=== PATIENT | male | born 1935 | race Two or more races ===

== ENCOUNTER 2019-01-28 10:20 | Inpatient (IN) | payer MEDICARE, BC ==
--- NOTE | 2019-01-28 10:31 | ED ---
HPI Chest Pain - HPI Summary HPI Summary: 83 year old M brought in by ambulance, [facility] his primary customer service representative teacher, Dr. Thurman, at [facility] in [place] accompanied by with a chief complaint of chest pressure that started last night, lasted for a few hours, and has since resolved. The patient complains of no symptoms in the ED. Symptoms aggravated by nothing. Symptoms alleviated by nothing. EMS reports irregular tachycardia en route. Patient denies shortness of breath, dizziness. Patient had a pacemaker placed in 2001. - History of Current Complaint Time Seen by Provider: 01/28/19 10:23 Hx Obtained From: Patient, EMS Onset/Duration: Started Days Ago - last night, Resolved Timing: Constant Current Severity: None Aggravating Factor(s): Nothing Alleviating Factor(s): Nothing Associated Signs and Symptoms: Positive: Negative - shortness of breath, dizziness, Other: - irregular tachycardia - Allergy/Home Medications Allergies/Adverse Reactions: Allergies Allergy/AdvReac Type Severity Reaction Status Date / Time No Known Allergies Allergy Verified 01/28/19 10:37 Home Medications: Home Medications Flaxseed Oil 1,400 mg PO DAILY 01/28/19 [History Confirmed 01/28/19] PMH/Surg Hx/FS Hx/Imm Hx Previously Healthy: No Endocrine/Hematology History: Reports: Hx Thyroid Disease - hypo Cardiovascular History: Reports: Hx Hypertension, Hx Pacemaker/ICD Sensory History: Reports: Hx Contacts or Glasses Opthamlomology History: Reports: Hx Contacts or Glasses - Surgical History Surgery Procedure, Year, and Place: PACEMAKER in 2001, b/l rotator cuff - Family History Known Family History: Positive: Hypertension - Social History Alcohol Use: Daily Alcohol Amount: 1 Hx Substance Use: No Substance Use Type: Reports: None Hx Tobacco Use: No Smoking Status (MU): Never Smoked Tobacco Review of Systems Positive: Other - chest pressure that is resolved, irregular tachycardia Negative: Shortness Of Breath Neurological: Negative - dizziness All Other Systems Reviewed And Are Negative: Yes Physical Exam - Summary Physical Exam Summary: VITAL SIGNS: Reviewed. GENERAL: Patient is a well-developed and nourished MALE who is lying comfortable in the stretcher. Patient is not in any acute respiratory distress. HEAD AND FACE: No signs of trauma. No ecchymosis, hematomas or skull depressions. No sinus tenderness. EYES: PERRLA, EOMI x 2, No injected conjunctiva, no nystagmus. EARS: Hearing grossly intact. Ear canals and tympanic membranes are within normal limits. MOUTH: Oropharynx within normal limits. NECK: Supple, trachea is midline, no adenopathy, no JVD, no carotid bruit, no c- spine tenderness, neck with full ROM. CHEST: Symmetric, no tenderness at palpation LUNGS: Clear to auscultation bilaterally. No wheezing or crackles. CVS: Tachycardia and regular rhythm, S1 and S2 present, no murmurs or gallops appreciated. ABDOMEN: Soft, non-tender. No signs of distention. No rebound no guarding, and no masses palpated. Bowel sounds are normal. EXTREMITIES: FROM in all major joints, no edema, no cyanosis or clubbing. NEURO: Alert and oriented x 3. No acute neurological deficits. Speech is normal and follows commands. SKIN: Dry and warm. Triage Information Reviewed: Yes Vital Signs Reviewed: Yes Diagnostics - Laboratory Result Diagrams: 01/28/19 10:51 01/28/19 10:51 Lab Statement: Any lab studies that have been ordered have been reviewed, and results considered in the medical decision making process. - Radiology CXR Radiology Interpretation Completed By: Radiologist Summary of Radiographic Findings: 1. Pulmonary vascular congestion with mild alveolar and interstitial edema. ED physician has reviewed this report. - EKG 1030 Cardiac Rate: Tachycardia - 135 BPM EKG Rhythm: Atrial Flutter EKG Comparison: No Significant Change - 11/16/2007 Summary of EKG Findings: Tachycardia at 135 BPM, atrial flutter, LVH, and ST depressions in I, II, B4-B6. This EKS is similar to previous EKG on 11/16/2007 Chest Pain Course/Dx - Course Assessment/Plan: 83 year old M brought in by ambulance, [facility] his primary customer service representative teacher, Dr. Thurman, at [facility] in [place] accompanied by with a chief complaint of chest pressure that started last night, lasted for a few hours, and has since resolved. The patient complains of no symptoms in the ED. Symptoms aggravated by nothing. Symptoms alleviated by nothing. EMS reports irregular tachycardia en route. Patient denies shortness of breath, dizziness. Patient had a pacemaker placed in 2001. Past medical history significant for. 1- hypothyroidism. 2- hypertension. 3- BPH status post TURP. 4- Atrial fibrillation on Eliquis. 5- ICD implant. 6- Cholecystectomy. EKG shows an atrial flutter 139 bpm. I discussed the case with Dr. Marshall from cardiology and he reported that at this time, we are unable to cardiovert him because the patient ate this morning. Therefore, he recommends to give a dose of amiodarone at 150 mg in 10-15 minutes. If the patient doesnt chemically convert to sinus rhythm, then admit the patient to the hospitalist services and Dr. Marshall will try to cardiovert him early this evening. Patient was given 2 doses of Amiodarone and has not converted to normal sinus rhythm. The heart rate is still in the 115 - 120 bpm range. Discussed the case again with Dr. Marshall and he recommends for the patient to be placed on amiodarone drip. I discussed my physical exam and test results with Dr. Wilson from the hospitalist services and she agrees to admit patient to her services. Patient is hemodynamically stable alert and oriented x 3. - Diagnoses Provider Diagnoses: Atrial flutter with rapid ventricular response - Provider Notifications Time Discussed With Above Provider: 10:44 Instructed by Provider To: Other - Dr. Thurman, customer service representative teacher from [employer], states that patient ate this morning. Spoke with Dr. Marshall, cardiology, at 10: 48, who states that since patient ate between 08:00 and 09:00 this morning, we have to wait [address] Marshall recommends giving patient amiodarone 150 mg over 10-15 minutes and see if patient chemically converts to sinus rhythm. Spoke with Dr. Wilson, hospitalist, at 1141, who agrees to admit the patient. Spoke with Dr. Marshall, cardiology, at 1144, who agrees that patient should be placed on an amiodarone drip. - Critical Care Time Critical Care Time: 30-74 min Discharge - Sign-Out/Discharge Documenting (check all that apply): Patient Departure - Admit Patient Received Moderate/Deep Sedation with Procedure: No - Discharge Plan Condition: Stable Disposition: ADMITTED TO [facility] - Billing Disposition and Condition Condition: STABLE Disposition: Admitted to [facility] - Attestation Statements Document Initiated by Scribe: Yes Documenting Scribe: Sujey Lopez Provider For Whom Scribe is Documenting (Include Credential): Faustino Robertson MD Scribe Attestation: I, Sujey Lopez, scribed for Faustino Robertson MD on 01/28/19 at 1426. Scribe Documentation Reviewed: Yes Provider Attestation: The documentation as recorded by the scribe, Sujey Lopez accurately reflects the service I personally performed and the decisions made by me, Faustino Robertson MD Status of Scribe Document: Viewed
[2019-01-28] MEDS ORDERED: Amiodarone 150 MG IVPREMIX* 150 MG/100 ML BAG IV ONE ×2 (10:51→11:38)
[2019-01-28 10:59] LABS: Hematocrit 52 % (42-52); Hemoglobin 17.3 g/dL (14.0-18.0); Mean Corpuscular HGB Conc 33 g/dL (31-36); Mean Corpuscular Hemoglobin 32 pg (27-31); Mean Corpuscular Volume 97 fL (80-94); Mean Platelet Volume 10.8 fL (7.4-10.4); Platelet Count 110 10^3/uL (150-450); Red Blood Count 5.39 10^6 /uL (4.18-5.48); Red Cell Distribution Width 14 % (10-15)
[2019-01-28 11:09] LABS: Activated Partial Thrombo Time 39.7 seconds (26.0-38.0); INR 1.38 (0.82-1.09)
[2019-01-28 11:14] LABS: Anion Gap 5 mmol/L (2-11); BUN/Creatinine Ratio 15.3 (8-20); Blood Urea Nitrogen 17 mg/dL (6-24); CO2 Carbon Dioxide 26 mmol/L (22-32); Chloride 110 mmol/L (101-111); Glucose 119 mg/dL (70-100); Potassium 3.6 mmol/L (3.5-5.0); Sodium 141 mmol/L (135-145)
[2019-01-28 11:15] LABS: ALT 17 U/L (7-52); AST 21 U/L (13-39); Albumin 3.7 g/dL (3.2-5.2); Albumin/Globulin Ratio 1.3 (1-3); Alkaline Phosphatase 59 U/L (34-104); Calcium 8.9 mg/dL (8.6-10.3); Creatine Kinase 65 U/L (10-223); EGFR African American 76.4 (>60); EGFR Non-African American 63.1 (>60); Globulin 2.8 g/dL (2-4); Magnesium 1.9 mg/dL (1.9-2.7); Total Protein 6.5 g/dL (6.4-8.9)
[2019-01-28 11:19] LABS: CKMB ng/mL 5.5 ng/mL (0.6-6.3)
[2019-01-28 11:24] LABS: Troponin I 0.08 ng/mL (<0.04)
[2019-01-28 11:42] LABS: ABS Eosinophils 0.1 10^3/ul (0-0.6); ABS Lymphocytes 1.1 10^3/ul (1.0-4.8); ABS Monocytes 1.1 10^3/ul (0-0.8); ABS Neutrophils 5.7 10^3/ul (1.5-7.7); Large Platelets Present; Lymphocyte % 13.9 %
[2019-01-28] MEDS ORDERED: Amiodarone 360 MG IVPREMIX* 360 MG/200 ML BAG IV ONE (11:45)
[2019-01-28 12:04] LABS: TSH (Thyroid Stimulating Horm) 1.42 mcIU/mL (0.34-5.60)
[2019-01-28] MEDS ORDERED: Magnesium Sulfate 1 GM IV* 1 GM/100 ML BAG IV ONE (12:14)
[2019-01-28] MEDS: KCL 20 MEQ/100 ML IVPREMIX* 20 MEQ/100 ML BAG IV SCH ×2 (13:28→18:28)
--- NOTE | 2019-01-28 13:42 | HP ---
CC: Dr. Dinero; Dr. Thurman, [facility] * HOSPITAL MEDICINE HISTORY AND PHYSICAL: DATE OF ADMISSION: 01/28/19 PRIMARY CARE PHYSICIAN: Dr. Dinero. [employer] ATTENDANT: Dr. Thurman at [facility] in [place]. ATTENDING PHYSICIAN: Dr. Gladys Wilson (dictation provided by Julisa Felton NP). CHIEF COMPLAINT: Chest tightness, dizziness, palpitations. HISTORY OF PRESENT ILLNESS: Mr. Reynolds is an 83-year-old male with a past medical history of AFib/SVT with pacemaker/defibrillator placed in 2001, as well as hypothyroidism, who presents to the hospital today with concern for chest tightness, dizziness, and palpitations. Mr. Reynolds states that he first began feeling unwell about 2 days ago. He noticed some chest tightness, but had no other symptoms. Yesterday evening, he began to feel unwell. At one point, he got up and felt very dizzy and almost fell down. His took his blood pressure and noted that his blood pressure was normal, but that his heart rate was elevated to approximately 130. She took it several times during the evening and it remained at 130. The patient decided to go to bed at night and to call his manager data warehousing in the morning. This morning, Mr. Reynolds continued to have a heart rate in the 130s. He also describes at this point some sensation of palpitations and a sensation of shortness of breath. His spoke to Dr. Thurman over the phone and he recommended that he come immediately to the hospital via ambulance. Mr. Reynolds states that he is feeling well just lying in the bed now. He denies any other symptoms including nausea, vomiting, diarrhea , abdominal pain. He has been tolerating oral intake well. Mr. Reynolds was found to be in a rapid SVT on arrival. His heart rate was 135. He has ST depressions in V3 through V5. Rhythm is likely AFib. The patient was given amiodarone boluses x2. Case was discussed with Dr. Carlo Marshall from Cardiology and plans were made for the patient to have an amiodarone drip, though it has not been initiated yet. I will note that the patient does have a mildly low potassium at 3.6 and a magnesium of 1.9. His troponin is 0.08. PAST MEDICAL HISTORY: 1. History of SVT or AFib with pacemaker/defibrillator placement in 2001. The patient reports 2 episodes of defibrillator activity, none noted during the current episode. 2. Hypothyroidism. MEDICATIONS OUTPATIENT: 1. Flaxseed oil 1400 mg p.o. daily. 2. Eliquis 5 mg p.o. b.i.d. 3. Tamsulosin 0.4 mg p.o. b.i.d. 4. Levothyroxine 150 mcg p.o. daily. 5. Diltiazem 180 mg p.o. daily. ALLERGIES: No known drug allergies. FAMILY HISTORY: The patient reports his mother at age 94 related to stroke. She also had colon cancer. Dad in his 80s, but he is unsure of what cause. SOCIAL HISTORY: The patient denies tobacco or drug use. He drinks one-half glass of an alcoholic beverage per night. REVIEW OF SYSTEMS: A 14-point review of systems was completed with Mr. Reynolds and all those not mentioned above were negative. PHYSICAL EXAMINATION GENERAL: Mr. Reynolds is lying in the bed with his at the bedside. He is in no acute distress. VITAL SIGNS: Temperature 98.9, pulse rate 127 during my examination, respiratory rate 22, O2 saturation 98% on room air, blood pressure 163/103. LUNGS: Clear to auscultation bilaterally with no accessory muscle use and good aeration. HEART: S1, S2. Irregular and rapid. ABDOMEN: Soft, nontender with bowel sounds positive x4. EXTREMITIES: No cyanosis or edema. NEURO: He is alert. He is oriented x3. He moves all extremities equally. There is no facial asymmetry or focal weakness. Extraocular movements are intact. SKIN: Intact. DIAGNOSTIC STUDIES/LAB DATA: Sodium 141, potassium 3.6, chloride 110, serum bicarbonate 26, BUN 17, creatinine 1.11, glucose 119. Troponin 0.08. BNP 810. TSH is 1.42. WBC 8.0, hemoglobin 17.3, hematocrit 52, platelet count 110. Chest x-ray shows some pulmonary vascular congestion. ASSESSMENT AND PLAN: Mr. Reynolds is an 83-year-old male with a past medical history of supraventricular tachycardia and/or atrial fibrillation with pacemaker/defibrillator, who presents to the hospital with concern for not feeling well with symptoms of chest tightness, shortness of breath, dizziness, and palpitations. In the emergency room, he has been found to have a rapid heart rate at 135, likely with supraventricular tachycardia and possible atrial fibrillation. Our plans are for inpatient admission as I expect his length of stay to be greater than 2 days for the followin. Rapid heart rate. Appears to be atrial fibrillation, but regardless he has a rapid supraventricular tachycardia. The patient has been given 2 boluses of amiodarone with limited effect as his heart rate is 127. Dr. Marshall has recommended the initiation of an amiodarone drip, which has not been started yet. The patient is already on Eliquis. We will repeat electrolytes with potassium and magnesium now and recheck in the a.m. 2. Hypothyroidism. Continue levothyroxine. 3. Benign prostatic hypertrophy. Continue Flomax. 4. Code status is full code. 5. Disposition: To ICU for amiodarone drip. TIME SPENT: Approximately 60 minutes was spent on the admission of this patient , more than half the time spent with the patient at the bedside reviewing the events leading up to this hospitalization, performing the physical examination, and reviewing my plan of care. JULISA FELTON NP [id number]/CPS #: [id number] YAMILETH
[2019-01-28 14:46] LABS: Troponin I 0.09 ng/mL (<0.04)
[2019-01-28 14:50] LABS: Urine Appearance Clear; Urine Bilirubin Negative (Negative); Urine Blood Negative (Negative); Urine Color Yellow; Urine Glucose Negative (Negative); Urine Ketones Negative (Negative); Urine Nitrite Negative (Negative); Urine Protein Negative (Negative); Urine Specific Gravity 1.025 (1.010-1.030); Urine Urobilinogen Negative (Negative)
[2019-01-28] MEDS ORDERED: fentaNYL* 50 MCG/ML 2 ML VIAL (100 MCG VIAL) ONE (16:07)
[2019-01-28] MEDS ORDERED: Midazolam* 1 MG/ML 10 ML VIAL (10 MG) ONE (16:07)
[2019-01-28] MEDS ORDERED: Flumazenil* 0.1 MG/ML 5 ML MDV ONE (16:10)
[2019-01-28] MEDS ORDERED: Naloxone* 0.4 MG/ML 1 ML VIAL ONE (16:10)
[2019-01-28] MEDS ORDERED: Adenosine* 3 MG/ML VIAL ONE ×2 (16:11→17:24)
--- NOTE | 2019-01-28 17:47 | PROCNOTE ---
Cardiology Procedure Note 01/28/2019 External electrical cardioversion Risks, benefits and alternatives discussed and patient wished to proceed Patient with symptomatic rapid atrial flutter 2:1 Adenosine 6 mg IV no response Adenosine 12 mg IV slowed atrial flutter transiently Patient maintained rapid atrial flutter despite IV amiodarone bolus and infusion Patient has been taking eliquis 5 mg po bid for at least 1 month so FALGUNI not indicated 5 mg IV versed, 50 mcg IV fentanyl used for conscious sedation Patient cardioverted from rapid atrial flutter to sinus/paced rhythm with 75J external electrical sync x 1
--- NOTE | 2019-01-28 18:01 | CONSULT ---
Subjective Date of Service: 01/28/19 Interval History: Admission Date: 01/28/19 Consult date 01/28/2019 Provider: Hospitalist service PCP Dr. Dinero Subway Guard: Dr. Thurman CHIEF COMPLAINT: Chest tightness, dizziness, palpitations Reason for consult: Atrial flutter HISTORY OF PRESENT ILLNESS: Mr. Reynolds is an 83-year-old man with a history as below who was admitted for several days of chest discomfort, dizziness and palpitations. He was seen in the ER and found with rapid atrial flutter that was unable to be rate controlled or converted with IV amiodarone bolus and infusion. It was ultimately decided that an electrical cardioversion would be most appropriate and this was pursued. His K of 3.6 and Mg of 1.9 were replaced. he had a mildly detectable troponin stable on repeat secondary to underlying structural heart disease and arrhythmia and not consistent with ACS. PAST MEDICAL HISTORY: 1. Mild NICM. Patient tells me he had normal coronary angiogram 4-5 years ago. Had normal perfusion with LVEF 41% by stress testing 12/2017 2. VT s/p PM/ICD 2011 - 2 ICD discharged uncertain if appropriate 3. Paroxysmal atrial fibrillation on eliquis fdc 4. Hypothyroidism. ALLERGIES: No known drug allergies. FAMILY HISTORY: The patient reports his mother at age 94 related to stroke. She also had colon cancer. Dad in his 80s, but he is unsure of what cause. SOCIAL HISTORY: The patient denies tobacco or drug use. He drinks one-half glass of an alcoholic beverage per night. his and granddaughter are present Medications Active Medications: Apixaban (Eliquis*) 5 mg PO BID [facility] Diltiazem HCl (Cardizem Cd Cap*) 120 mg PO DAILY [facility]; Protocol Levothyroxine Sodium (Synthroid Tab*) 150 mcg PO DAILY@0600 [facility] Tamsulosin HCl (Flomax Cap*) 0.4 mg PO BID [facility] Home Medications: Apixaban* [Eliquis*] 5 mg PO BID 04/01/16 [History Confirmed 01/28/19] Diltiazem TAB* [Cardizem TAB*] 180 mg PO DAILY 04/01/16 [History Confirmed 01/28] Levothyroxine TAB* [Synthroid TAB*] 150 mcg PO DAILY 04/01/16 [History Confirmed 01/28/19] Tamsulosin HCl [Flomax] 0.4 mg PO BID 04/01/16 [History Confirmed 01/28/19] Flaxseed Oil 1,400 mg PO DAILY 01/28/19 [History Confirmed 01/28/19] Review of Systems - Measurements Intake and Output: Intake and Output Last 24 Hours 01/26/19 01/27/19 01/28/19 01/29/19 06:59 06:59 06:59 06:59 Intake Total 300 Balance 300 Weight 180 lb Intake: IV Fluids 300 - Review of Systems Constitutional Symptoms: Positive: Weakness, Fatigue Negative: Weight Gain, Weight Loss, Fever, Night Sweats, Unexplained Falls Dermatology: Negative: Rash, Skin Lesions HEENT: Negative: Change in Hearing, Vertigo Eyes: Negative: Change in Vision, Double Vision Thyroid: Positive: Palpitations Negative: Weight Loss, Weight Gain Pulmonary: Negative: Cough, Sputum, Hemoptysis, Wheezing, Respiratory Distress, COPD, Home Oxygen Cardiology: Positive: Chest Pain, Shortness of Breath, Palpitations Negative: Swelling of Ankles, Peripheral Vascular Dis, Edema, Syncope, Claudication, Paroxysmal Nocturnal Dyspnea, Orthopnea Gastroenterology: Negative: Abdominal Pain, Nausea, Vomiting, Anorexia, Blood in Stools, Haematemesis, Melena Genital - Urinary: Negative: Dysuria, Hematuria, Nocturia Musculoskeletal: Negative: Joint Pain, Joint Stiffness Endocrinology: Negative: Polydipsia, Polyuria Hematologic/Lymphatic: Positive: Use of Anticoagulant Negative: Hx Leukemia, Hx Lymphoma Neurology: Negative: Change in Speech, Change in Sphincter Function, Change in Walking, Hx of Stroke\TIA, Hx Seizures Psychiatry: Negative: Unusual Anxiety, Suicidal Ideation Allergic/Immunologic: Negative: Hx HIV, Immunocompromise Review of Systems Statement: All other review of systems negative, unless stated above. Objective Vital Signs: Temp Pulse Resp BP Pulse Ox 98.2 F 127 22 145/98 94 01/28/19 16:00 01/28/19 15:00 01/28/19 15:00 01/28/19 15:00 01/28/19 15:00 Oxygen Devices in Use Now: None Appearance: nad, pleasant Ears/Nose/Mouth/Throat: Clear Oropharnyx, Mucous Membranes Moist Neck: NL Appearance and Movements; NL JVP, Trachea Midline Respiratory: Symmetrical Chest Expansion and Respiratory Effort, Clear to Auscultation Cardiovascular: - - tachycardic, regular, no significant murmur, pm/icd intact left upper chest Abdominal: NL Sounds; No Tenderness; No Distention Extremities: No Edema Skin: No Rash or Ulcers Neurological: Alert and Oriented x 3 Laboratory Results: 01/28/19 10:51 01/28/19 10:51 INR (Anticoag Therapy) 1.38 (0.82-1.09) H 01/28/19 10:51 APTT 39.7 seconds (26.0-38.0) H 01/28/19 10:51 Total Bilirubin 0.90 mg/dL (0.2-1.0) 01/28/19 10:51 AST 21 U/L (13-39) 01/28/19 10:51 ALT 17 U/L (7-52) 01/28/19 10:51 Alkaline Phosphatase 59 U/L (34-104) 01/28/19 10:51 CK-MB (CK-2) 5.5 ng/mL (0.6-6.3) 01/28/19 10:51 B-Natriuretic Peptide 810 pg/mL (<=100) H 01/28/19 10:51 Total Protein 6.5 g/dL (6.4-8.9) 01/28/19 10:51 Albumin 3.7 g/dL (3.2-5.2) 01/28/19 10:51 Globulin 2.8 g/dL (2-4) 01/28/19 10:51 Albumin/Globulin Ratio 1.3 (1-3) 01/28/19 10:51 TSH 1.42 mcIU/mL (0.34-5.60) 01/28/19 10:51 01/28/19 01/28/19 10:51 14:03 Troponin I 0.08 H* 0.09 H* mg 1.9 Diagnostic Imaging: Exam Date: 01/28/19 IMPRESSION: #. Pulmonary vascular congestion with mild alveolar and interstitial edema. EKG Data: ekg 11/2007: NSR, LBBB ekg today: 2:1 atrial flutter 135 bpm, ivcd, rate related st changes Assessment/Plan Patient with a history as above admitted with 2:1 atrial flutter unable now s/p external electrical cardioversion. See separate procedure report for details. - Would monitor overnight - Continue current amiodarone gtt then d/c - Continue [employer] diltiazem and eliquis - CXR notes pulmonary congestion. Likely secondary to arrhythmia. Will monitor overnight check echo and EKG tomorrow morning. Pending results of these tentative plan for discharge tomorrow on same medications as was admitted with. Patient has an appointment with his civil engineering designer, Dr. Thurman on 2018 previously scheduled for further evaluation and management
[2019-01-28] MEDS: Tamsulosin CAP* 0.4 MG PO SCH (21:04)
[2019-01-28] MEDS: Apixaban* 5 MG TAB PO SCH (21:04)
[2019-01-28] MEDS ORDERED: Furosemide IV* 10 MG/ML 2 ML VIAL (20 MG) IV ONE (21:38)
[2019-01-28] MEDS ORDERED: Benzonatate CAP* 100 MG PO PRN (23:47)
[2019-01-29 05:31] LABS: BUN/Creatinine Ratio 14.7 (8-20); Calcium 8.6 mg/dL (8.6-10.3); EGFR Non-African American 64.4 (>60); Potassium 3.9 mmol/L (3.5-5.0)
[2019-01-29] MEDS ORDERED: Levothyroxine TAB* 150 MCG TAB PO SCH (06:00)
[2019-01-29] MEDS: Tamsulosin CAP* 0.4 MG PO SCH (08:07)
[2019-01-29] MEDS: Apixaban* 5 MG TAB PO SCH (08:07)
[2019-01-29] MEDS ORDERED: Furosemide IV* 10 MG/ML 2 ML VIAL (20 MG) IV ONE (08:50)
[2019-01-29] MEDS ORDERED: Diltiazem CD CAP* 180 MG PO SCH (09:00)
[2019-01-29] MEDS ORDERED: Diltiazem CD CAP* 120 MG PO SCH (09:00)
--- NOTE | 2019-01-29 10:14 | ECHO ---
*[facility]* [place] [address] Fax #: [phone] Transthoracic Echocardiogram Patient: Gail, Height: 67 in / Osvaldo 170.2 cm : 1935 Weight: 179.6 lb / Study Date: 01/29/2019 81.6 kg Age: 83 BP: 141 / 85 Gender: M BMI/BSA: 28.2 kg/m^2 HR: 67 bpm / 1.93 m^2 *Design Inserter: Kimberlyn Diaz [facility] *Referring Physician: * Julisa FeltonReading Physician: * Carlo Marshall MD Indications: Abnormal EKG. History: Atrial fibrillation. SVT. Labs, prior tests, procedures, and surgery: Permanent pacemaker system implantation. Conclusions Summary: 1. Left ventricle: The cavity size is normal. Wall thickness is moderately increased. Systolic function is mildly to moderately reduced. The estimated ejection fraction is 40%. Doppler parameters are consistent with restrictive physiology, indicative of decreased left ventricular diastolic compliance and/or increased left atrial pressure. 2. Right ventricle: The cavity size is normal. Pacer wire noted in the right ventricle. Systolic function is normal. 3. Left atrium: The atrium is mildly dilated. 4. Mitral valve: There is mild to moderate regurgitation. 5. Ascending aorta: The ascending aorta is mildly dilated. 6. Pulmonary arteries: Systolic pressure is mildly to moderately increased. The peak pressure during systole by Doppler is 47.0 mm Hg. Recommendations: None prior for comparison at time of interpretation. Study data: Transthoracic echocardiogram. Procedure: Transthoracic echocardiography was performed. Image quality was fair. Complete 2D, spectral Doppler, and color flow Doppler. Location: ICU Patient status: Inpatient. Patient room number: 4. Rhythm: Normal sinus rhythm. Findings Left ventricle: The cavity size is normal. Wall thickness is moderately increased. Systolic function is mildly to moderately reduced. The estimated ejection fraction is 40%. Wall motion is normal; there are no regional wall motion abnormalities. Doppler parameters are consistent with restrictive physiology, indicative of decreased left ventricular diastolic compliance and/or increased left atrial pressure. Right ventricle: The cavity size is normal. Pacer wire noted in the right ventricle. Systolic function is normal. Systolic pressure is mildly to moderately increased. Left atrium: The atrium is mildly dilated. Right atrium: The atrium is at the upper limits of normal in size. Pacer wire noted in right atrium. Mitral valve: The annulus is mildly calcified. The leaflets are mildly thickened. There is no evidence of stenosis. There is mild to moderate regurgitation. Aortic valve: The valve is trileaflet. There is no evidence of stenosis. There is no significant regurgitation. Tricuspid valve: The leaflets are normal thickness. There is no evidence of stenosis. There is mild regurgitation. Pulmonic valve: Not well visualized. There is no significant regurgitation. Aorta: Aortic root: The aortic root is upper normal in size. Ascending aorta: The ascending aorta is mildly dilated. Aortic arch: The aortic arch is poorly visualized. Pericardium: There is no significant pericardial effusion. Pulmonary arteries: Not well visualized. Systolic pressure is mildly to moderately increased. Systemic veins: Inferior vena cava: The vessel is dilated. The respirophasic diameter changes are in the normal range (>= 50%). Measurements Left ventricle Value Ref Aortic valve continued Value Ref ZARA, LAX 5.0 cm 4.2 - 5.8 Peak v, S 0.97 m/sec ----- ESD, LAX (H) 4.5 cm 2.5 - 4.0 VTI, S 20.0 cm ----- FS, LAX (L) 16 % 25 - 43 Mean grad, S 2.0 mm Hg ----- PW, ED, LAX (H) 1.3 cm 0.6 - 1.0 Peak grad, S 4.0 mm Hg ----- EF (L) 33 % 52 - 72 E', lat gary, TDI (L) 6.7 cm/sec >=10.0 Mitral valve Value R ef E/e', lat gary, 11 Peak E 0.71 m/sec ---- - TDI Peak A 0.32 m/sec ----- E', med gary, TDI (L) 5.0 cm/sec >=7.0 Decel time 195 ms - ---- E/e', med gary, 14 Peak grad, D 2.0 mm Hg ---- - TDI Peak E/A ratio 2.2 ----- E', avg, TDI 5.9 cm/sec ERO, PISA 0.09 cm^2 ---- - E/e', avg, TDI 12 <=14 MR vol, PISA 15 ml - ---- LVOT Value Ref Pulmonic valve Value Ref Peak chelsey, S 0.76 m/sec Peak v, S 0.64 m/sec ----- Mean grad, S 1 mm Hg Peak grad, S 2.0 mm Hg ----- Ventricular septum Value Ref Tricuspid valve Value Ref IVS, ED (H) 1.3 cm 0.6 - 1.0 TR peak v (H) 3.4 m/sec <=2.8 Peak RV-RA grad, S 46 mm Hg ----- Right ventricle Value Ref ZARA, LAX 2.6 cm Aortic root Value Ref ZARA minor ax, A4C 3.2 cm 1.9 - 3.5 Root diam 3.5 cm <4.1 mid Pressure, S 49 mm Hg Ascending aorta Value Ref AAo AP diam, S 3.9 cm ----- Left atrium Value Ref AP dim, ES 4.00 cm 3.00 - Decending aorta Value Ref 4.00 Radhika peak chelsey 0.29 m/sec ----- ML dim, A4C 4.1 cm SI dim, A4C 6.1 cm Pulmonary artery Value Ref Vol/bsa, ES, A/L (H) 38 ml/m^2 16 - 34 Pressure, S 47.0 mm Hg ----- Right atrium Value Ref Inferior vena cava Value Ref SI dim, ES 5.3 cm 3.4 - 5.3 Diam 2.8 cm ----- ML dim, ES, A4C 4.3 cm 2.6 - 4.4 Estimated RAP 3 mm Hg Aortic valve Value Ref Gary diam, ED 2.3 cm Legend: (L) and (H) yaya values outside specified reference range. Prepared and electronically signed by Carlo Marshall MD 01/29/2019 10:14
--- NOTE | 2019-01-29 10:50 | PN ---
Subjective Date of Service: 01/29/19 Interval History: f/u atrial flutter, CHF Patient developed clinical HF last PM, unsure if arrhythmia triggered this or the opposite Responding very well to lasix 20 mg IV x 2 Echo this AM as below tele: NSr, no arrhythmias Admission Date: 01/28/19 Consult date 01/28/2019 Provider: Hospitalist service PCP Dr. Dinero Salvage Cutter: Dr. Thurman CHIEF COMPLAINT: Chest tightness, dizziness, palpitations Reason for consult: Atrial flutter HISTORY OF PRESENT ILLNESS: Mr. Reynolds is an 83-year-old man with a history as below who was admitted for several days of chest discomfort, dizziness and palpitations. He was seen in the ER and found with rapid atrial flutter that was unable to be rate controlled or converted with IV amiodarone bolus and infusion. It was ultimately decided that an electrical cardioversion would be most appropriate and this was pursued. His K of 3.6 and Mg of 1.9 were replaced. he had a mildly detectable troponin stable on repeat secondary to underlying structural heart disease and arrhythmia and not consistent with ACS. PAST MEDICAL HISTORY: 1. Mild NICM. Patient tells me he had normal coronary angiogram 4-5 years ago. Had normal perfusion with LVEF 41% by stress testing 12/2017 2. VT s/p PM/ICD 2011 - ICD discharged uncertain if appropriate 3. Paroxysmal atrial fibrillation on eliquis correction 4. Hypothyroidism. ALLERGIES: No known drug allergies. FAMILY HISTORY: The patient reports his mother at age 94 related to stroke. She also had colon cancer. Dad in his 80s, but he is unsure of what cause. SOCIAL HISTORY: The patient denies tobacco or drug use. He drinks one-half glass of an alcoholic beverage per night. his and granddaughter are present Medications Active Medications: Apixaban (Eliquis*) 5 mg PO BID [facility] Last Admin: 01/29/19 08:07 Dose: 5 mg Benzonatate (Tessalon Cap*) 100 mg PO BID PRN PRN Reason: COUGH Diltiazem HCl (Cardizem Cd Cap*) 180 mg PO DAILY [facility]; Protocol Last Admin: 01/29/19 08:07 Dose: 180 mg Levothyroxine Sodium (Synthroid Tab*) 150 mcg PO DAILY@0600 [facility] Last Admin: 01/29/19 05:15 Dose: 150 mcg Losartan Potassium (Cozaar Tab*) 50 mg PO DAILY [facility] Last Admin: 01/29/19 10:28 Dose: 50 mg Tamsulosin HCl (Flomax Cap*) 0.4 mg PO BID [facility] Last Admin: 01/29/19 08:07 Dose: 0.4 mg Objective Vital Signs: Temp Pulse Resp BP Pulse Ox 99 F 75 20 160/88 95 01/29/19 07:55 01/29/19 10:00 01/29/19 10:32 01/29/19 10:00 01/29/19 10:00 Oxygen Devices in Use Now: None Appearance: nad, pleasant Ears/Nose/Mouth/Throat: Clear Oropharnyx, Mucous Membranes Moist Neck: Trachea Midline, - - uncertain jvp Respiratory: Symmetrical Chest Expansion and Respiratory Effort, - - faint crackles left base Cardiovascular: - - RRR significant murmur, pm/icd intact left upper chest Abdominal: NL Sounds; No Tenderness; No Distention Extremities: No Edema Skin: No Rash or Ulcers Neurological: Alert and Oriented x 3 Laboratory Results: 01/28/19 10:51 01/29/19 05:09 INR (Anticoag Therapy) 1.38 (0.82-1.09) H 01/28/19 10:51 APTT 39.7 seconds (26.0-38.0) H 01/28/19 10:51 Total Bilirubin 0.90 mg/dL (0.2-1.0) 01/28/19 10:51 AST 21 U/L (13-39) 01/28/19 10:51 ALT 17 U/L (7-52) 01/28/19 10:51 Alkaline Phosphatase 59 U/L (34-104) 01/28/19 10:51 CK-MB (CK-2) 5.5 ng/mL (0.6-6.3) 01/28/19 10:51 B-Natriuretic Peptide 810 pg/mL (<=100) H 01/28/19 10:51 Total Protein 6.5 g/dL (6.4-8.9) 01/28/19 10:51 Albumin 3.7 g/dL (3.2-5.2) 01/28/19 10:51 Globulin 2.8 g/dL (2-4) 01/28/19 10:51 Albumin/Globulin Ratio 1.3 (1-3) 01/28/19 10:51 TSH 1.42 mcIU/mL (0.34-5.60) 01/28/19 10:51 01/28/19 01/28/19 10:51 14:03 Troponin I 0.08 H* 0.09 H* Diagnostic Imaging: Exam Date: 01/28/19 IMPRESSION: #. Pulmonary vascular congestion with mild alveolar and interstitial edema. EKG Data: ekg 11/2007: NSR, LBBB ekg 01/28/2019: 2:1 atrial flutter 135 bpm, ivcd, rate related st changes ekg today nsr, lvh with repolarization abnormalities Transthoracic Echocardiogram Study Date: 01/29/2019 Conclusions Summary: 1. Left ventricle: The cavity size is normal. Wall thickness is moderately increased. Systolic function is mildly to moderately reduced. The estimated ejection fraction is 40%. Doppler parameters are consistent with restrictive physiology, indicative of decreased left ventricular diastolic compliance and/or increased left atrial pressure. 2. Right ventricle: The cavity size is normal. Pacer wire noted in the right ventricle. Systolic function is normal. 3. Left atrium: The atrium is mildly dilated. 4. Mitral valve: There is mild to moderate regurgitation. 5. Ascending aorta: The ascending aorta is mildly dilated. 6. Pulmonary arteries: Systolic pressure is mildly to moderately increased. The peak pressure during systole by Doppler is 47.0 mm Hg. Assessment/Plan 1. Symptomatic atrial flutter rapid - now s/p cardioversion 2. Heart failure with mildly reduced LVEF - ? hypertensive heart disease 3. VT s/p PM/ICD 2011 4. 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 Hypothyroidism. 6. HTN - Continue [employer] diltiazem and eliquis - Add losartan 50 mg po daily (ordered) - Add lasix 20 mg Wednesday, , Wednesday (ordered) - After this AM 's IV lasix if patient returns to baseline functional status later this afternoon can be discharged. Patient has an appointment with his electrician station assistant, Dr. Thurman on 01/31/2019 previously scheduled for further evaluation and management. Would have a BMP in 1-2 weeks and consider rechecking a BNP at that time.
[2019-01-29] MEDS ORDERED: Losartan TAB* 25 MG PO SCH (11:00)
--- NOTE | 2019-01-29 11:29 | PN ---
Subjective Date of Service: 01/29/19 Interval History: Patient did require IV lasix last evening 20 mg and during my assessment he was still complaining of Shortness of breath. He did have rales and crackles on exam. I reviewed his CXR and he did have increase cephalisation and congestions. I ordered for one more dose of Lasix 20 mg IV. Cardiology input noted and appreciated Past Medical History: Unchanged from Admission Objective Active Medications: Apixaban (Eliquis*) 5 mg PO BID [facility] Last Admin: 01/29/19 08:07 Dose: 5 mg Benzonatate (Tessalon Cap*) 100 mg PO BID PRN PRN Reason: COUGH Diltiazem HCl (Cardizem Cd Cap*) 180 mg PO DAILY [facility]; Protocol Last Admin: 01/29/19 08:07 Dose: 180 mg Furosemide (Lasix Tab*) 20 mg PO Q48HR [facility] Levothyroxine Sodium (Synthroid Tab*) 150 mcg PO DAILY@0600 [facility] Last Admin: 01/29/19 05:15 Dose: 150 mcg Losartan Potassium (Cozaar Tab*) 50 mg PO DAILY [facility] Last Admin: 01/29/19 10:28 Dose: 50 mg Tamsulosin HCl (Flomax Cap*) 0.4 mg PO BID [facility] Last Admin: 01/29/19 08:07 Dose: 0.4 mg Vital Signs - 8 hr 01/29/19 01/29/19 01/29/19 03:40 04:00 04:51 Temperature 98.3 F Pulse Rate 67 Respiratory 24 24 Rate Blood Pressure 137/88 (mmHg) O2 Sat by Pulse 94 Oximetry 01/29/19 01/29/19 01/29/19 05:00 06:00 07:00 Temperature Pulse Rate 64 64 71 Respiratory 23 19 16 Rate Blood Pressure 137/81 154/87 141/85 (mmHg) O2 Sat by Pulse 92 94 96 Oximetry 01/29/19 01/29/19 01/29/19 07:25 07:55 08:00 Temperature 99 F Pulse Rate 65 Respiratory 16 22 Rate Blood Pressure 149/89 (mmHg) O2 Sat by Pulse 93 Oximetry 01/29/19 01/29/19 01/29/19 08:59 09:00 09:01 Temperature Pulse Rate 74 84 Respiratory 16 22 21 Rate Blood Pressure 148/116 (mmHg) O2 Sat by Pulse 97 94 Oximetry 01/29/19 01/29/19 10:00 10:32 Temperature Pulse Rate 75 Respiratory 26 20 Rate Blood Pressure 160/88 (mmHg) O2 Sat by Pulse 95 Oximetry Oxygen Devices in Use Now: None Appearance: awake, pleasant no distress. audible wheezing Eyes: No Scleral Icterus Ears/Nose/Mouth/Throat: NL Teeth, Lips, Gums, Mucous Membranes Moist Neck: NL Appearance and Movements; NL JVP, Trachea Midline Respiratory: - - bibasilar rales 2/3 lung field posteriorly Abdominal: NL Sounds; No Tenderness; No Distention Extremities: No Edema Skin: No Rash or Ulcers Neurological: Alert and Oriented x 3 Result Diagrams: 01/28/19 10:51 01/29/19 05:09 Microbiology and Other Data: Microbiology 01/28/19 14:45 Nasal Screen MRSA (PCR) - Final Nasal Mrsa Not Detected Assess/Plan/Problems-Billing Assessment: 83 year old male admitted for Afib with RVR s/p D/c cardioversion and mild depressed EF of 40%. - Patient Problems (1) Atrial fibrillation with RVR Current Visit: Yes Status: Acute Code(s): I48.91 - UNSPECIFIED ATRIAL FIBRILLATION SNOMED Code(s): 561836151113977 Comment: - s/p cardioversion - Cardiology input appreciated. - Continue home medication of diltiazem 180 md daily and eliquis 5 mg bid - Added losartan 50 mg daily and lasix 20 mg M/W/F on discharge due to depressed EF of 40% on his Echo and CHF finding on exam and CXR requring lasix 20 mg IV twice (2) Acute systolic CHF (congestive heart failure) Current Visit: Yes Status: Acute Code(s): I50.21 - ACUTE SYSTOLIC ( CONGESTIVE) HEART FAILURE SNOMED Code(s): 333865550 Comment: - Echo reval EF 40% - Added lasix 20 mg M/W/F on discharge - S/p Lasix 20 mg IV x 2 - Follow up with Cardiology as sheduled as outpatient Dr. Thurman on 01/31/2019 previously scheduled. Will need BMP & BNP in 1-2 weeks (3) Hypothyroid Current Visit: Yes Status: Acute Code(s): E03.9 - HYPOTHYROIDISM, UNSPECIFIED SNOMED Code(s): 45383406 Comment: - continue levothyroxine 150 mcg daily (4) AICD (automatic cardioverter/defibrillator) present Current Visit: Yes Status: Acute Code(s): Z95.810 - PRESENCE OF AUTOMATIC ( IMPLANTABLE) CARDIAC DEFIBRILLATOR SNOMED Code(s): 985748019 Comment: - VT s/p PM/ICD 2011 (5) DVT prophylaxis Current Visit: Yes Status: Acute Code(s): Z29.9 - ENCOUNTER FOR PROPHYLACTIC MEASURES, UNSPECIFIED SNOMED Code(s): 999488544 Comment: - not indicated on eliquis Status and Disposition: As per cardio recommendations. will reassess this afternoon if he remains stable after his lasix IV possible discharge this afternoon. s/p IV lasix 20 mg x 2 due to acute systollic CHF clincially and on CXR
[2019-01-29 15:25] VITALS: BP 115/71
--- NOTE | 2019-01-29 18:40 | DS ---
CC: Dr. Thurman; Dr. Dinero DISCHARGE SUMMARY: DATE OF ADMISSION: 01/28/19 DATE OF DISCHARGE: 01/29/19 FINAL DISCHARGE DIAGNOSES: 1. Acute congestive heart failure, systolic. 2. Atrial fibrillation with rapid ventricular response, status post cardioversion. 3. History of ventricular tachycardia status post permanent pacemaker and AICD in 2011. 4. Hypothyroidism. HOSPITAL COURSE: The patient presented to [facility] for chest tightness, dizziness, and palpitations on 01/28/19 with known history of AFib and SVT requiring a pacemaker and defibrillator i n 2011. Symptoms started about 2 days prior to presentation intermittently but finally on day of adm ission, the symptoms were more persistent associated with chest tightness. He felt his pulse and it was racing in the 130s, difficulty breathing. Therefore, he was brought into the ER. In the emergenc y room, he was found in supraventricular tachycardia, atrial fibrillation with a rate of 135. He did receive amiodarone boluses x2. It did not resolve his symptoms. He was admitted for amiodarone katerine p. Continued to be in tachycardia, symptomatic. Therefore, they finally took him and performed DC c ardioversion around 5 p.m. on 01/28/19 using 75 joules external electrical synchronized M1 and conver mason to sinus rhythm. He remained in ICU postcardioversion. He had serial troponins, which was 0.08 followed by 0.09 and a BNP of 810. He developed slight volume overload with dyspnea, required intrav enous Lasix 20 mg overnight and 20 mg IV this morning. His chest x-ray did confirm presence of conge stive changes. I did see and evaluate the patient this morning at which time his respiratory was tac hypneic and audible wheezing and I did order the extra 20 mg this morning. He did have good urine ou tput. He was reassessed this afternoon and the patient reports feeling much improved. He was remain ing in sinus. Consulted with Cardiology who evaluated the patient and given the patient is back to h is baseline, he was deemed stable for discharge. PHYSICAL EXAM: Vital Signs: His temperature 99, pulse 76, respiratory rate 26, blood pressure 115/7 1. Generally, he is awake, alert, oriented, pleasant, in no apparent distress. Head and Neck: Nor mocephalic/atraumatic. Supple. Lungs: Clear to auscultation post Lasix 4 hours later. Cardiovascul ar: S1,S2. Regular rate and rhythm. Abdomen: Positive bowel sounds. Soft, nontender, nondistende d. Extremities: No pitting edema. DIAGNOSTIC STUDIES/LAB DATA: He had a troponin 0.08, six hours later 0.09. BNP 810. CBC and chemis try fairly unremarkable with a potassium of 3.9, magnesium 2.0. Urinalysis negative. Chest x-ray on 01/28/19, pulmonary congestions with interstitial edema. A 2D echo revealed ejection fraction slightly reduced at 40%, otherwise no valvular disease. EKG consistent with either AFib with aberrancy versus supraventricular tachycardia. complex. The patient hence seen, evaluated and cleared to be discharged home in a stable condition. DISCHARGE MEDICATIONS: Continue home medications as follows: 1. Eliquis 5 mg twice a day. 2. Tamsulosin 0.4 mg twice a day. 3. Levothyroxine 150 mcg daily. 4. Diltiazem 180 mg daily. 5. Flaxseed oil daily. New medications at discharge: 1. Furosemide 20 mg every 48 hours. 2. Losartan 50 mg every day. DISCHARGE RECOMMENDATIONS: Follow up with his human resources talent manager, Dr. Thurman in 1 to 2 weeks in [place]. Follow up with Dr. Lebron Tapia in [place]. DISCHARGE CONDITION: Stable. DISCHARGE DISPOSITION: Home. [id number]/[facility] #: [id number]
[2019-01-30] MEDS ORDERED: Furosemide TAB* 20 MG PO SCH (09:00)
== END 2019-01-29 16:12 | disposition home or self-care (01) | DRG 308 ==
LOC: ED 10:20 → ICU 12:30
PROVIDERS: ADMIT Internal Medicine; ATTEND Internal Medicine
PROC: 5A2204Z Restoration of Cardiac Rhythm, Single (ICD-10-PCS; principal; 2019-01-28)
DX: I48.0 Paroxysmal atrial fibrillation (principal); I50.21 Acute systolic (congestive) heart failure; I47.2 Ventricular tachycardia; I11.0 Hypertensive heart disease with heart failure; I34.0 Nonrheumatic mitral (valve) insufficiency; I47.1 Supraventricular tachycardia; E03.9 Hypothyroidism, unspecified; N40.0 Benign prostatic hyperplasia without lower urinary tract symptoms; Z95.810 Presence of automatic (implantable) cardiac defibrillator; Z79.01 Long term (current) use of anticoagulants; Z79.899 Other long term (current) drug therapy; Z82.3 Family history of stroke; Z80.0 Family history of malignant neoplasm of digestive organs
CPT/HCPCS: 36415; 71045; 80048; 80053; 81003; 82550; 82553; 83605; 83735; 83880; 84443; 84484; 85025; 85610; 85730; 87641; 93005; 93306; 99285; A9270-GY; J0153; J0282; J1940; J2250; J2310; J3010; J3475; J3480